=== PATIENT | male | born 1960 ===

== ENCOUNTER → 2024-01-26 09:15 | Outpatient (BNV) | payer MEDICARE, MEDICAID, SELFPAY | PROVIDERS: Visit Provider Internal Medicine | DX: C15.4 Malignant neoplasm of middle third of esophagus (principal); Z92.21 Personal history of antineoplastic chemotherapy | CPT/HCPCS: 99205; 99214; G2211 ==

== ENCOUNTER → 2024-01-30 08:31 | Outpatient (REF) | payer MEDICARE, MEDICAID, SELFPAY ==
--- NOTE | 2024-01-30 08:34 | CA_ITS ---
Acquisition Time: 2024-01-30 08:48:07 Total Exercise Time: 00:05:00 Test Indications: CP, PREOP Medications: SEE H Protocol: LULY Max HR: 151 BPM 95% of Pred: 158 BPM Max BP: 172/080 mmHG Max Work Load: 7.0 METS Exercise stress test exercise 5 mins of Luly protocol achieving 95% & 7 METS, without chest discomfort, wiith mild SOB, without arrhythmias, with normotensive response to exercise, without EKG changes. Test reviewed with Dr. Shanks. Referred By: Viktoriya Martini Overread By: Erika Adames
== END ==
LOC: HO.CARD 08:31
PROVIDERS: PCP Internal Medicine; Visit Provider Nurse Practitioner Adult Health
DX: R07.9 Chest pain, unspecified (principal)
CPT/HCPCS: 93017

== ENCOUNTER → 2024-01-30 08:34 | Outpatient (BNV) | payer MEDICARE, MEDICAID, SELFPAY | PROVIDERS: PCP Internal Medicine; Visit Provider Nurse Practitioner | DX: R06.02 Shortness of breath (principal) | CPT/HCPCS: 93016; 93018 ==

== ENCOUNTER 2024-02-05 11:59 | Outpatient (AMB) | payer MEDICARE, MEDICAID, SELFPAY ==
[2024-02-05 12:30] VITALS: BP 122/60; PULSE 76; BMI 29.0
--- NOTE | 2024-02-05 12:30 | MHC.OFFVIS ---
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 Patient himself does not have any known cardiac issues. No history of any coronary artery disease or myocardial infarction or cardiomyopathy. History of smoking in the past but nothing in the last few years. He states he does not have any anginal-type symptoms. With severe exertion, he may feel short of breath but otherwise he feels fine for the most part. [facility] Medical History (Updated 02/05/24 @ 12:52 by Chet Shanks MD) Neuroforaminal stenosis of spine Vision loss of left eye Lumbar radicular pain BPH (benign prostatic hyperplasia) Primary esophageal squamous cell carcinoma Diabetes HTN (hypertension) Osteoarthritis GERD (gastroesophageal reflux disease) Family History Maternal Grandfather Stomach cancer Social History (Updated 02/05/24 @ 12:42 by Leida Quiroga) Household Members: Spouse Alcohol intake: never Patient Tobacco Use Status: Former Tobacco user service: No Current occupational status: retired Review of Systems Const Denies weakness ENT Denies dizziness Card Denies chest pain, Denies chest pain with activity, Denies syncope, Denies rapid heart rate, Denies pedal edema, Denies edema, Denies leg edema, Denies lightheadedness, Denies palpitations, Denies dyspnea, Denies dyspnea on exertion and Denies orthopnea Resp Denies cough, Denies dyspnea and Denies dyspnea on exertion GI Denies hematochezia and Denies change in stool character Musc Denies abnormal gait, Denies muscle cramps, Denies muscle weakness, Denies numbness, Denies radiating pain into limb and Denies tingling Neuro Denies abnormal gait, Denies dizziness, Denies syncope, Denies numbness, Denies tingling and Denies weakness Endo Denies palpitations Physical Exam Vital Signs: Last Vital Signs Pulse 76 02/05/24 12:30 BP 122/60 02/05/24 12:30 BMI result Body Mass Index 29.0 Const General: comfortable and no acute distress Orientation/consciousness: patient oriented x3 HEENT Other: Unremarkable Head: Yes normal to inspection Neck Neck: Yes normal visual inspection Chest Chest palpation & inspection: normal inspection of the chest Resp Auscultation: clear to auscultation bilaterally Cardio Palpation: normal PMI Heart sounds: S1 normal heart sound present, S2 normal heart sound present, no gallops, no murmurs and no rubs GI Palpation (GI): Soft to palpation Back/Spine/Pelvis Other: unremarkable Skin General skin exam: no rashes or lesions noted Neuro General: patient oriented x3 Extrem General: Yes normal to inspection Psych Mental Status: mental status grossly normal Office Procedures EKG Details: EKG with sinus rhythm at 76/Min; sinus arrhythmias; rightward axis; no significant ST-T changes; [place] [id number], Complete Assessment & Plan Assessment & Plan (1) Preoperative cardiovascular examination: Code(s): Z01.810 - Encounter for preprocedural cardiovascular examination Category: Medical (2) Squamous cell esophageal cancer: Code(s): C15.9 - Malignant neoplasm of esophagus, unspecified Category: Medical Plan Baseline EKG is unremarkable. In the exercise stress test, he was able to exercise for 7 METS on the Aldo protocol. Reached 95% of max predicted heart rate. No angina. Mild shortness of breath. Normal blood pressure response. No EKG evidence of ischemia. Overall, within normal limits. We will also get an echocardiogram for cardiac function assessment. Can make an addendum once it is reviewed. Discussed with significant other. Orders: Orders CA echo transthoracic complete Today Z01.810 - Encounter for preprocedural cardiovascular examination Coding Level of Care Code New Pt Level 4 (24592) Diagnoses Preoperative cardiovascular examination Z01.810 Squamous cell esophageal cancer C15.9 CPT Codes EKG - CPT: 37410-[id number], Complete ([id number])
== END 2024-02-05 12:54 | disposition home or self-care (01) ==
PROVIDERS: Visit Provider Internal Medicine
DX: C15.9 Malignant neoplasm of esophagus, unspecified (principal); Z01.810 Encounter for preprocedural cardiovascular examination; I49.9 Cardiac arrhythmia, unspecified
CPT/HCPCS: 93010; 93306; 93356; 99204

== ENCOUNTER → 2024-02-05 13:07 | Outpatient (REF) | payer MEDICARE, SELFPAY ==
--- NOTE | 2024-02-05 13:26 | CA_ITS ---
Transthoracic Echocardiogram Patient (Last, First, Middle): Zeb Monroy, Gender: Male Date of : 1960 Age: 63 Procedure Date: 02/05/2024 Procedure Type: Transthoracic Echocardiogram Location: OP Height: 170.18 cm Weight: 83.92 kg BSA: 1.96 m2 Heart Rate: 74 bpm BP: 120 / 60 mmHg [place] Cutter Helper: SB Referring MD: Chet Shanks MD Symptoms: Z01.810 - Encounter for preprocedural cardiovascular examination Study Quality: Fair ECG Rhythm: Sinus Conclusions: - The left ventricular systolic function is low normal. The visually estimated ejection fraction is between 50-55%. - No obvious valvular pathology seen on this study. Findings Left Ventricle Normal left ventricular cavity size. There is normal left ventricular wall thickness. The left ventricular systolic function is low normal. The visually estimated ejection fraction is between 50-55%. There is no evidence of regional wall motion abnormalities. Diastolic function is normal for age. LV peak GLS 15%, but possibly under-estimation. Right Ventricle Mildly increased right ventricular cavity size. There is normal right ventricular systolic function. Atria Both atria are normal in size. Aortic Valve There is a normal trileaflet aortic valve. There is mild calcification of the aortic valve. There is no aortic valve stenosis. There is no aortic valve regurgitation. Mitral Valve The mitral valve appears normal. There is no mitral valve regurgitation. There is no mitral valve stenosis. Pulmonic Valve The pulmonic valve is likely normal. Tricuspid Valve Normal tricuspid valve structure. There is trace tricuspid valve regurgitation. Tricuspid regurgitation envelope is inadequate for calculation of right ventricular systolic pressure. Great Vessels The asc aorta is normal in size. Small plaque is seen in the sino tubular ridge. Venous The inferior vena cava is normal in size and collapses greater than 50% with inspiration. Pericardium/Pleural There is no evidence of pericardial effusion. Prior Study Comparison No prior study available for comparison. Recommendations, Care & Conclusions No obvious valvular pathology seen on this study. Measurements 2D Linear Measurements IVSd: 0.94 0.6-0.9/0.6-1.0 cm LVIDd: 4.36 3.9-5.3/4.2-5.9 cm LVIDd Index: 2.22 2.4-3.2/2.2-3.1 cm/m2 LVIDs: 2.94 2.0-3.6 cm LVPWd: 0.90 0.7-1.1 cm LA Diam: 3.50 2.7-3.8/3.0-4.0 cm LAIDs Index: 1.79 1.5-2.3 cm/m2 LV Mass: 160.71 67-162/88-224 g LV Mass Index: 81.99 43-95/49-115 g/m2 LVOT Diam: 2.00 3.0+(-)1.3 cm 2D Systolic Function EF 4C: 49.20 >55% EF 2C: 58.30 >55% EF BiP: 53.70 >55% Mitral Valve MV Pk E: 0.71 MV PK A: 0.76 MV Decel Time: 176.00 E/A: 0.90 E'Lateral: 9.90 E'Medial: 8.05 E/E' Med: 8.80 E/E' Lat: 7.20 PHT: 51.00 MVA PHT: 4.31 Decel [place]: 4.05 Aortic Valve AoV Pk Richard: 1.31 AoV Pk Grad: 7.00 REY: 2.78 LVOT LVOT Pk Richard: 1.16 LVOT Mn Richard: 0.76 LVOT VTI: 0.23 LVOT Pk Grad: 5.00 LVOT Mn Grad: 3.00 LVOT Diam: 2.00 LVOT Area: 3.14 Diastolic Function MV Pk E: 0.71 MV Pk A: 0.76 E/A: 0.90 E'Medial: 8.05 E/E' Med: 8.80 E' Laterial: 9.90 E/E' Lat: 7.20 Right Ventricle TAPSE (mm): 27.00 TVS' Richard: 14.50 Tricuspid Valve RA Press: 3.00 Great Vessels Aorta Sinus of Valsalva: 2.70 2.0-3.5 cm Ao Asc: 3.00 2.1-3.4 cm Pulmonary Veins Pulm Vein S/D 1.20 Pulmonary Valve PV Pk Richard: 0.90 Peak PV Grad: 3.00 Updated in Other Vendor System with Status of Final Chet Shanks MD electronically signed on 02/06/2024 11:58:17 AM with status of Final
== END ==
LOC: HO.CARD 13:07
PROVIDERS: PCP Internal Medicine; Visit Provider Internal Medicine
DX: Z01.810 Encounter for preprocedural cardiovascular examination (principal)
CPT/HCPCS: 93005; 93306; 99202